=== PATIENT | male | born 1970 | race Caucasian/White ===

== ENCOUNTER → 2017-11-02 | Outpatient (REF) ==
[2016-10-16 09:33] VITALS: BMI 33.1
[~2017-11-02] MED LIST: ASPI81TA94 PO; CHOL100058 PO; IBUP-1671 PO; INSU100C14 SQ; LEVI SUBQ; LOSA100T67 PO; MAGN400C PO; METF-54 PO; MULT-1381 PO; NIC10R INH; OMEP-125 PO; OMEP-137 PO; POTA99TA3 PO; TRAZ-156 PO
--- NOTE | 2017-11-02 13:31 | RADIOLOGY IMAGING REPORT ---
FACILITY: [facility] [place] PATIENT NAME: Mao Pierce : 1970 MR: [id number] V: [id number] EXAM DATE: ORDERING PHYSICIAN: WILLEM RICCI TECHNOLOGIST: Location: [facility] Patient: Mao Pierce : 1970 Visit/Account:[id number] Date of Sevice: 11/02/2017 HIP LEFT Indication: Left hip pain. Comparison: Left hip radiograph 01/03/2017 Findings: There is severe narrowing of the left hip joint space, with kyqg-bf-fott contact and subcho ndral cystic change. Right hip joint space is preserved. There is no fracture. IMPRESSION: Severe osteoarthritis left hip. This is more advanced compared to 01/03/2017. Report Dictated By: Chester Ace at 11/02/2017 1:26 PM Report E-Signed By: Chester Ace at 11/02/2017 1:27 PM WSN:[id number]
== END ==
LOC: RAD 11:47
PROVIDERS: ATTEND Orthopaedic Surgery Orthopaedic Surgery of the Spine
DX: M16.12 Unilateral primary osteoarthritis, left hip (principal)

== ENCOUNTER → 2018-09-17 | Outpatient (CLI) | payer OTHER ==
[2016-10-16 09:33] VITALS: BMI 33.1
[~2018-09-17] MED LIST changes: -LOSA100T67 PO; +LOSA100T75 PO; -TRAZ-156 PO; +TRAZ50TA34 PO
[2018-09-17 10:38] LABS: PLATELET COUNT, AUTOMATED 177 K/uL (150-450)
--- NOTE | 2018-09-17 11:06 | EKG ---
FACILITY: [facility] - [place] PATIENT NAME: ANTONIO CALIX : [id number] MR: [id number] V: [id number] EXAM DATE: ORDERING PHYSICIAN: MANUEL HARLEY TECHNOLOGIST: CRISTOFER Quezada Reason : PRE-OP HIP Blood Pressure : / mmHG Vent. Rate : 061 BPM Atrial Rate : 061 BPM P-R Int : 130 ms QRS Dur : 096 ms QT Int : 382 ms P-R-T Axes : 080 095 074 degrees QTc Int : 384 ms Sinus rhythm Possible biatrial enlargement Decreased R wave progression anteriorly No previous ECGs available Confirmed by DANIEL SEGOVIA ([id number]) on 09/17/2018 12:52:00 PM Referred By: CRICKET Confirmed By:DANIEL SEGOVIA
== END ==
LOC: LAB 10:03
PROVIDERS: ATTEND Anesthesiology
DX: Z01.812 Encounter for preprocedural laboratory examination (principal); Z01.810 Encounter for preprocedural cardiovascular examination; E11.9 Type 2 diabetes mellitus without complications; M16.12 Unilateral primary osteoarthritis, left hip
CPT/HCPCS: 36415; 81001; 82040; 82247; 82310; 82374; 82435; 82565; 82947; 83036; 84075; 84132; 84155; 84295; 84450; 84460; 84520; 85025; 86850; 86900; 86901; 93005